=== PATIENT | male | born 2000 | race Two or more races ===

== ENCOUNTER 2021-06-12 04:01 | Emergency (ER) | payer MEDICAID ==
[~2021-06-12] VITALS: Ht 172.7 cm; Wt 95.0 kg
[2021-06-12] MEDS ORDERED: LORAZEPAM 1MG TABLET PO ONE (04:15)
[2021-06-12 04:33] VITALS: BP 141/85
== END 2021-06-12 05:38 | disposition home or self-care (01) ==
LOC: ER 04:01
DX: F12.90 Cannabis use, unspecified, uncomplicated (principal); R00.2 Palpitations
CPT/HCPCS: 93005; 99283; Z7610